=== PATIENT | female | born 1990 | race Caucasian/White ===

== ENCOUNTER 2017-04-30 09:22 | Emergency (ER) | payer OTHER ==
[~2017-04-30] VITALS: Ht 162.6 cm; Wt 49.9 kg
--- NOTE | 2017-04-30 09:36 | PHYS DOC ---
Adult General Chief Complaint Chief Complaint: left knee pain [facility] HPI Patient is a 27 year old female who presents with knee pain. She states she's had issues with bleeding had have cortisone injections in the past. She does have a surgeon she follows with. She's never had have a surgeries. She states August going up some steps and felt a tearing sensation in her left knee. She is able to ambulate but states she has pain with it. She denies any calf pain or thigh pain. She states it feels occurred kneecap itself is on fire. She states she's tried ice, elevation, [id number] Tylenol and Advil without any relief. She denies any swelling in her leg or calf. She called her orthopedic surgeon but they can't see her for 3 weeks. Review of Systems Review of Systems Constitutional: Denies fever or chills [] Eyes: Denies change in visual acuity, redness, or eye pain [] HENT: Denies nasal congestion or sore throat [] Respiratory: Denies cough or shortness of breath [] Cardiovascular: No additional information not addressed in HPI [] GI: Denies abdominal pain, nausea, vomiting, bloody stools or diarrhea [] : Denies dysuria or hematuria [] Musculoskeletal: Denies back pain, positive for left knee pain Integument: Denies rash or skin lesions [] Neurologic: Denies headache, focal weakness or sensory changes [] Endocrine: Denies polyuria or polydipsia [] All other systems were reviewed and found to be within normal limits, except as documented in this note. Physical Exam Physical Exam Constitutional: Well developed, well nourished, no acute distress, non-toxic appearance. [] HENT: Normocephalic, atraumatic, bilateral external ears normal, oropharynx moist, no oral exudates, nose normal. [] Eyes: PERRLA, EOMI, conjunctiva normal, no discharge. [] Neck: Normal range of motion, no tenderness, supple, no stridor. [] Cardiovascular:Heart rate regular rhythm, no murmur [] Lungs & Thorax: Bilateral breath sounds clear to auscultation [] Abdomen: Bowel sounds normal, soft, no tenderness, no masses, no pulsatile masses. [] Skin: Warm, dry, no erythema, no rash. [] Back: No tenderness, no CVA tenderness. [] Extremities: Tender palpation over the left kneecap, small amount of effusion appreciated, full range of motion intact, lateral collateral ligaments intact, anterior posterior drawer negative, no cyanosis, no clubbing, ROM intact, no edema. Dorsal pedis pulse 2+ left lower extremity, calf nontender, no cords appreciated or swelling Neurologic: Alert and oriented X 3, normal motor function, normal sensory function, no focal deficits noted. [] Psychologic: Affect normal, judgement normal, mood normal. [] EKG EKG [] Radiology/Procedures Radiology/Procedures [address] [address] IMAGING REPORT Signed PATIENT: HUMBERTO MENDES ACCOUNT: [id number] : 1990 LOCATION: ER AGE: 27 SEX: F EXAM STATUS: REG ER ORD. PHYSICIAN: KARTHIK RAMOS MD REASON: pain PROCEDURE: KNEE LEFT 4V Left knee with patella, 4 views, 04/30/2017: History: Knee pain, injury No fracture or dislocation is identified. No significant joint effusion is evident. IMPRESSION: No acute left knee abnormality is detected. DICTATED AND SIGNED BY: LORENA CURIEL MD DATE: 04/30/17 1013 CC: KARTHIK RAMOS MD; NON,STAFF ~ Impressions: Left knee pain Course & Med Decision Making Course & Med Decision Making Pertinent Labs and Imaging studies reviewed. (See chart for details) [] Dragon Disclaimer Dragon Disclaimer This electronic medical record was generated, in whole or in part, using a voice recognition dictation system. Departure Departure: Impression: Primary Impression: Knee pain, acute Disposition: 01 HOME, SELF-CARE Condition: STABLE Referrals: NON,STAFF (PCP) Patient Instructions: Knee Pain Additional Instructions: The x-ray did not show any abnormalities. You can continue icing your knee can also purchase [id number] Lidoderm patches or use other topical pain creams on your knee. Your being discharged with tramadol which you can use as needed for pain. If your pain gets severe, your knee swells, you develop fevers , troubles breathing or other concerns please return back to emergency department. You will need to follow-up with your orthopedic surgeon within the next few days. If you cannot get a hold of your orthopedic surgeon, you can always follow-up with Dr. Knight at [facility]. Please call [facility]'s main number, located in [place], [place] and ask to be transferred to his office. Scripts Tramadol Hcl (TRAMADOL HCL) 50 Mg Tablet 50 MG PO PRN Q6HRS Y for PAIN, #12 TAB Prov: KARTHIK RAMOS MD 04/30/17 Problem Qualifiers Primary Impression: Knee pain, acute Laterality: left Qualified Codes: M25.562 - Pain in left knee KARTHIK RAMOS MD Apr 30, 2017 09:36
--- NOTE | 2017-04-30 10:16 | RAD ---
Left knee with patella, 4 views, 04/30/2017: History: Knee pain, injury No fracture or dislocation is identified. No significant joint effusion is evident. IMPRESSION: No acute left knee abnormality is detected.
[2017-04-30] MEDS ORDERED: TRAM50TA PO (10:19)
[2017-04-30 11:05] VITALS: BP 138/80
== END 2017-04-30 11:36 | disposition home or self-care (01) ==
LOC: ER 09:22
DX: M25.562 Pain in left knee (principal)
CPT/HCPCS: 73564; 99284